=== PATIENT | female | born 1945 | race Caucasian/White ===

== ENCOUNTER → 2018-03-17 | Outpatient (CLI) | payer MEDICARE | END | disposition home or self-care (01) | LOC: CFH 15:16 | PROVIDERS: ATTEND Nurse Practitioner Family | DX: M19.041 Primary osteoarthritis, right hand (principal); M19.042 Primary osteoarthritis, left hand ==

== ENCOUNTER → 2020-12-05 | Outpatient (CLI) | payer MEDICARE ==
[~2020-12-05] MED LIST: CYCL5TAB PO; GLIM2TAB7 PO; LINA5TAB PO; LISI2.5T PO; LISI5TAB7 PO; MELO7.5T31 PO; PRAV10TA2 PO; PROP40TA PO; REGADENOSON 0.4 MG/5 ML SYRINGE ONE; SERT100T32 PO; gabapentin PO; levothyroxine PO
== END | disposition home or self-care (01) ==
LOC: CVU 10:36
PROVIDERS: ATTEND Internal Medicine Cardiovascular Disease
DX: I08.2 Rheumatic disorders of both aortic and tricuspid valves (principal); R07.89 Other chest pain
CPT/HCPCS: 78452; 93017; 93306; 93356; A9502; J2785